=== PATIENT | male | born 2005 ===

== ENCOUNTER 2023-02-03 08:41 | Outpatient (REF) | payer MEDICAID, SELFPAY | END 2023-02-03 08:42 | disposition home or self-care (01) | LOC: HO.HOSX 08:41 | PROVIDERS: Visit Provider Orthopaedic Surgery | DX: Z13.89 Encounter for screening for other disorder (principal) ==

== ENCOUNTER 2023-02-04 11:16 | Outpatient (AMB) | payer OTHER, SELFPAY ==
--- NOTE | 2023-02-04 11:50 | A.OFFVIS_ITS ---
Intake Vital Signs 02/04/23 11:51 Height 5 ft 9 in Weight 182 lb BMI 26.9 Intake Visit Reasons: New Pt - right wrist pain EMG Done Intake Note: Joshua 17 yr old male who is right hand dominant presents today for a new patient visit for his right wrist pain. States he is having wrist pain that started about 6 months ago. no injury he can recall. Pain is at base of his thumb. Pain increase with flextion and extension of wrist. States has a brace OTC but states his pain increase. Denies numbness and tingling. EMG done. 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 He complains of several months of right radial wrist pain. Somebody ordered a nerve conduction study for him and he is being seen today with that nerve conduction study. He says his pain is worse with activities like lifting weights. He denies any known injury. He also denies having problems with numbness and tingling in his hands [facility] Social History (Updated 02/04/23 @ 11:53 by KUSUM Chen) Current occupational status: employed Current occupation: [employer]/ right hand Physical Exam Vital Signs: BMI result Body Mass Index 26.9 Const General: cooperative, healthy appearing and no acute distress Orientation/consciousness: oriented to person and oriented to place HEENT Head: Yes normocephalic and Yes atraumatic Eyes EOM: EOMs intact bilaterally Resp Effort & Inspection: normal respiratory effort and able to speak in complete sen tences Cardio Jugular venous distension: no JVD Skin General skin exam: turgor normal Rashes: no rashes Neuro General: oriented to person and oriented to place Extrem Other: Evaluation of right Upper Extremity: Neuro: Median, ulnar, radial nerves motor and sensory intact. No intrinsic or thenar wasting Vascular: Cap refill brisk. ROM: Can bring fingers closed to a fist and back out to extension. Can oppose thumb to fingertips He is most tender to palpation directly over the 1st dorsal compartment were passes over the radial styloid. There is some mild swelling in the 1st dorsal compartment right where it passes over the radial styloid. Positive Rosario test on the right and negative Rosario test on the left Skin: No lacerations or abrasions. General: No eccymosis. No erythema or evidence of infection. EMG nerve conduction study: Performed on the right side on 12/18/[address] Nogueira Impression: This is an unremarkable study. Please see his report for additional information as necessary: Psych Appearance: grossly normal Affect: normal affect Attitude: cooperative Office Procedures Fracture Care Details: No fracture, injection Fracture Billing Code: Fracture Billing Code Assessment & Plan Assessment & Plan (1) De Quervain's tenosynovitis, right: Code(s): M65.4 - Radial styloid tenosynovitis [de Quervain] Plan Assessment and plan: 1. Right de Quervain tenosynovitis Educated about this condition Talked about the importance of activity modification We fitted him with a neoprene thumb spica splint to wear with daytime activities when symptomatic Discussed the risks and benefits of an injection versus surgery and he wishes to proceed with an injection. I am recommending an injection. Injection #1: The risks and benefits of a steroid injection including but not limited to risk of damage to blood vessels, nerves, tendons, infection, skin bleaching, failure to improve symptoms, increased pain, and possible need for further injections or other intervention were discussed with the patient and the patient wishes to proceed with the steroid injection. Once consent was obtained, I sterilely prepped the area over the A1 crhistiano of the right 1st dorsal compartment. I then injected the right 1st dorsal compartment tendon sheath with a combination of 1 mL of dexamethasone (4mg/ml), and 1% lidocaine. The patient tolerated the procedure well with no complications. He had good early relief of symptoms before leaving clinic. If he is still having symptoms in 6-8 weeks he can contact our clinic to be seen for either a repeat injection or perhaps scheduling an operative release of the 1st dorsal compartment. Coding Level of Care Code New Pt Level 3 (04371) Diagnoses De Quervain's tenosynovitis, right M65.4 CPT Codes Fracture Care - Fracture Billing Code: Fracture Billing Code ([id number])
[2023-02-04 11:51] VITALS: BMI 26.9
== END 2023-02-04 12:36 | disposition home or self-care (01) ==
PROVIDERS: Visit Provider Orthopaedic Surgery
DX: M65.4 Radial styloid tenosynovitis [de Quervain] (principal)
CPT/HCPCS: 20550; 99203

== ENCOUNTER → 2023-02-04 11:16 | Outpatient (BNVA) | payer MEDICAID, SELFPAY | PROVIDERS: Visit Provider Orthopaedic Surgery | DX: M65.4 Radial styloid tenosynovitis [de Quervain] (principal) | CPT/HCPCS: 20550; 99202; J1100 ==